=== PATIENT | male | born 1985 | race American Indian/Alaskan Native ===

== ENCOUNTER 2017-10-25 11:19 | Emergency (ER) | payer SELFPAY ==
[2017-10-25 11:32] VITALS: BP 161/88
[2017-10-25] MEDS ORDERED: ASPIRIN PO ONE (11:32)
[2017-10-25 12:05] LABS: Basophils % (Auto) 0.4 % (0.0-1.8); Eosinophils # (Auto) 0.1 K/mm3 (0.0-0.4); Eosinophils % (Auto) 1.3 % (0.0-4.3); Hematocrit 41.8 % (35.5-45.6); Hemoglobin 13.8 gm/dl (11.8-15.2); Lymphocytes # (Auto) 2.3 K/mm3 (1.2-5.4); Lymphocytes % (Auto) 43.9 % (13.4-35.0); Mean Corpuscular HGB Conc 33 % (32-34); Mean Corpuscular Hemoglobin 27 pg (28-32); Mean Corpuscular Volume 81 fl (84-94); Monocytes # (Auto) 0.3 K/mm3 (0.0-0.8); Monocytes % (Auto) 5.6 % (0.0-7.3); Platelet Count 238 K/mm3 (140-440); Red Blood Count 5.16 M/mm3 (3.65-5.03); Red Cell Distribution Width 14.4 % (13.2-15.2)
[2017-10-25 12:10] LABS: BUN/Creatinine Ratio 20; Blood Urea Nitrogen 16 mg/dL (9-20); Calcium 9.7 mg/dL (8.4-10.2); Hemolysis Index 4
--- NOTE | 2017-10-25 12:42 | XRay Report ---
ROUTINE CHEST, TWO VIEWS: HISTORY: chest pain. The trachea, heart, mediastinal contour, lung turner and bony thorax are unremarkable. IMPRESSION: Unremarkable chest x-ray.
--- NOTE | 2017-10-25 17:57 | Emergency Department Report ---
ED General Adult HPI - General Chief complaint: Chest Pain Stated complaint: CHEST PAIN/SOB Time Seen by Provider: 10/25/17 17:29 Source: patient Mode of arrival: Ambulatory Limitations: No Limitations - History of Present Illness Initial comments: Patient displays of left upper chest pain that started on Wednesday and has been constant since that time. Patient denies any radiation of this chest pain and states that he also has some heart palpitations as well. Patient nausea and shortness of breath, abdominal pain, headache. Patient denies any recent travel via car or airplane and denies any recent calf pain. -: Sudden Location: chest Radiation: non-radiation Severity scale (0 -10): 3 Quality: dull Consistency: constant Improves with: none Worsens with: none Associated Symptoms: denies other symptoms Treatments Prior to Arrival: none - Related Data Allergies Allergy/AdvReac Type Severity Reaction Status Date / Time No Known Allergies Allergy Unverified 10/25/17 11:32 ED Review of Systems ROS: Stated complaint: CHEST PAIN/SOB Other details as noted in HPI Comment: All other systems reviewed and negative Constitutional: denies: chills, fever Eyes: denies: eye pain, eye discharge, vision change ENT: denies: ear pain, throat pain Respiratory: denies: cough, shortness of breath, wheezing Cardiovascular: denies: chest pain, palpitations Endocrine: no symptoms reported Gastrointestinal: denies: abdominal pain, nausea, diarrhea Genitourinary: denies: urgency, dysuria Musculoskeletal: denies: back pain, joint swelling, arthralgia Skin: denies: rash, lesions Neurological: denies: headache, weakness, paresthesias Psychiatric: denies: anxiety, depression Hematological/Lymphatic: denies: easy bleeding, easy bruising ED Past Medical Hx - Past Medical History Previous Medical History?: No - Surgical History Past Surgical History?: No - Social History Smoking Status: Never Smoker Substance Use Type: None ED Physical Exam - General Limitations: No Limitations General appearance: alert, in no apparent distress - Head Head exam: Present: atraumatic, normocephalic - Eye Eye exam: Present: normal appearance, PERRL, EOMI - ENT ENT exam: Present: mucous membranes moist - Neck Neck exam: Present: normal inspection - Respiratory Respiratory exam: Present: normal lung sounds bilaterally. Absent: respiratory distress, wheezes, rales, rhonchi - Cardiovascular Cardiovascular Exam: Present: regular rate, normal rhythm. Absent: systolic murmur, diastolic murmur, rubs, gallop - GI/Abdominal GI/Abdominal exam: Present: soft, normal bowel sounds. Absent: distended, tenderness - Rectal Rectal exam: Present: deferred - Extremities Exam Extremities exam: Present: normal inspection - Back Exam Back exam: Present: normal inspection - Neurological Exam Neurological exam: Present: alert, oriented X3, CN II-XII intact. Absent: motor sensory deficit - Psychiatric Psychiatric exam: Present: normal affect, normal mood - Skin Skin exam: Present: warm, dry, intact, normal color. Absent: rash ED Course Vital Signs 10/25/17 11:29 Temperature 98.6 F Pulse Rate 73 Respiratory 18 Rate Blood Pressure 161/88 O2 Sat by Pulse 99 Oximetry ED Medical Decision Making - Lab Data Result diagrams: 10/25/17 11:40 10/25/17 11:40 - Medical Decision Making EKG done at 1143 Normal sinus rhythm with rate [address] elevations Normal axis normal intervals. Discussed results with the patient Critical care attestation.: If time is entered above; I have spent that time in minutes in the direct care of this critically ill patient, excluding procedure time. ED Disposition Clinical Impression: Nonspecific chest pain Disposition: DC-01 TO HOME OR SELFCARE Is pt being admited?: No Does the pt Need Aspirin: No Condition: Stable Instructions: Noncardiac Chest Pain (ED), Chest Pain (ED) Additional Instructions: RETURN IF WORSE Referrals: GLORIA ZACARIAS MD [Primary Care Provider] - 3-5 Days RONALDO HONEYCUTT MD [Staff Physician] - 3-5 Days [facility] [Provider Group] - 3-5 Days Time of Disposition: 18:06
== END 2017-10-25 18:13 | disposition home or self-care (01) ==
LOC: ED 11:19
DX: R07.89 Other chest pain (principal); R00.2 Palpitations
CPT/HCPCS: 36415; 71046; 80048; 84484; 85025; 93005; 93010